=== PATIENT | female | born 1980 | race Caucasian/White ===

== ENCOUNTER 2017-06-15 17:11 | Emergency (ER) | payer BC, OTHER ==
[2017-06-15 17:20] VITALS: BP 105/61
--- NOTE | 2017-06-15 17:22 | UC ---
Back Pain HPI - HPI Summary HPI Summary: Patient presents with complaints of non-traumatic back pain x several days. She states it is in the lower back, and radiates down the side of her left leg to the knee. She denies any incontinence of bowel, bladder or saddle anesthesia. She states she had similar symptoms she had before with sciatica, and was RX flexeril and predispose with good relief. She states she recently resumed her work and is sitting at a desk. She complaints of left hip pain that radiates to the lumbar back, and down the left leg to the knee. She denies any worsening pain with ambulation. She states the pain is worse with certain movement and improves at rest. - History of Current Complaint Chief Complaint: UCBackPain Stated Complaint: BACK PAIN Time Seen by Provider: 06/15/17 17:14 Hx Obtained From: Patient Hx Last Menstrual Period: currently menstruating ?: No Onset/Duration: Gradual Onset, Lasting Days Timing: Constant, Lasting Days Severity Initially: Moderate Severity Currently: Moderate Back Pain: Is Discrete @ Character: Dull, Aching Aggravating Factor(s): Movement, Bending Alleviating Factor(s): Rest Associated Signs And Symptoms: Positive: Negative Related History: Similar Episode Dx As - sciatica - Risk Factors AAA Risk Factors: Negative TAD Risk Factors: Negative Cauda Equina Risk Factors: Negative Epidural Abscess Risk Factors: Negative - Allergies/Home Medications Allergies/Adverse Reactions: Allergies Allergy/AdvReac Type Severity Reaction Status Date / Time Nickel Allergy Rash And Verified 06/15/17 17:20 Itching Home Medications: Home Medications BuPROPion XL* [Bupropion XL*] 300 mg PO DAILY 06/15/17 [History Confirmed ] Muscle Relaxer 1 tab PO ONCE 06/15/17 [History Confirmed 06/15/17] PMH/Surg Hx/FS Hx/Imm Hx Previously Healthy: Yes - Surgical History Surgical History: Yes Surgery Procedure, Year, and Place: [place] teeth extraction - Family History Known Family History: Positive: None - Social History Occupation: Employed Full-time Lives: Alone Alcohol Use: Weekly Alcohol Amount: 2 times per week Substance Use Type: None Smoking Status (MU): Never Smoked Tobacco Review of Systems Constitutional: Negative Skin: Negative Eyes: Negative ENT: Negative Respiratory: Negative Cardiovascular: Negative Gastrointestinal: Negative Genitourinary: Negative Motor: Negative Neurovascular: Negative Musculoskeletal: Arthralgia, Myalgia, Other: - lumbar, left hip pain Neurological: Negative Psychological: Negative All Other Systems Reviewed And Are Negative: Yes Physical Exam Triage Information Reviewed: Yes Appearance: Pain Distress Vital Signs: Initial Vital Signs Temp 98 F 06/15/17 17:14 Pulse 63 06/15/17 17:14 Resp 18 06/15/17 17:14 BP 105/61 06/15/17 17:14 Pulse Ox 100 06/15/17 17:14 Eye Exam: Normal ENT Exam: Normal Neck exam: Normal Neck: Positive: 1 Respiratory Exam: Normal Cardiovascular Exam: Normal Abdominal Exam: Normal Musculoskeletal: Positive: ROM Limited @ - back; inspection, vertebra are in good aligment without stepoff or deformities. no areas of eccymosis, erythma, or edema. palpation;tenderness on palpation of thoracic spine over t7-12. lower extremity strenth testing equal bilaterally 4/5. patellar reflexes 2+ bilaterally. negative straight leg raise. gait heel-toe. Neurological Exam: Normal Psychological Exam: Normal Skin Exam: Normal Back Pain Course/Dx - Course Course Of Treatment: Patient presents with complaints of recurrent lumbar back pain. Xrays of the left hip, pelvis and lumbar spine were obtained and were read by the radiologist as negative. Patient was given tylenol 650 mg in the department. Patient was treated with prednisone, and flexeril. PT referral given. Patient instructed to follow up with PCP in two days. No evidence of cauda equina symdrome noted per cc/hpi or PE. Patient discharged home in stable condition. - Differential Dx/Diagnosis Differential Diagnosis/HQI/PQRI: Strain - sciatica, Sprain Provider Diagnoses: sciatica. sprain. strain Discharge - Discharge Plan Condition: Stable Disposition: HOME Prescriptions: Cyclobenzaprine TAB* [Flexeril 10 MG TAB*] 10 mg PO TID PRN #14 tab MDD 3 PRN Reason: BACK PAIN predniSONE TAB* [Deltasone TAB*] 20 mg PO BID #10 tab Patient Education Materials: Sciatica (ED), Back Pain (ED) Referrals: Aurea Fernández MD [Primary Care Provider] - Additional Instructions: FOLLOW UP WITH YOUR PCP IF YOUR BACK PAIN PERSIST WITHIN TWO DAYS.
[2017-06-15] MEDS ORDERED: predniSONE TAB* 20 MG PO ONE (17:45)
[2017-06-15] MEDS ORDERED: Acetaminophen TAB* 325 MG PO ONE (17:45)
[2017-06-15] MEDS ORDERED: Cyclobenzaprine TAB* 10 MG PO ONE (18:09)
--- NOTE | 2017-06-15 18:15 | RAD ---
HISTORY: Back pain COMPARISONS: None VIEWS: 5 , Frontal, lateral, coned-down lateral sacral, and bilateral oblique views of the lumbar spine. FINDINGS: ALIGNMENT: There is straightening of the normal lumbar lordosis. VERTEBRAL BODIES: The vertebral body heights are normal. The interpedicular distances are normal. There is a small dysraphic defect of the posterior arch of S1. JOINTS: The facet joints are normal. INTERVERTEBRAL DISCS: There is mild loss of intervertebral disc height. SOFT TISSUE: Unremarkable. OTHER: The pelvis is unremarkable. The lung bases are clear. IMPRESSION: STRAIGHTENING OF THE LUMBAR LORDOSIS. MILD DEGENERATIVE DISC DISEASE.
--- NOTE | 2017-06-15 18:15 | RAD ---
HISTORY: Left hip pain COMPARISONS: None VIEWS: 3, Frontal view of the pelvis with frontal and frog-leg views of the left hip FINDINGS: BONE DENSITY: Normal. BONES: There is no displaced fracture. JOINTS: There is no arthropathy. ALIGNMENT: There is no dislocation. SOFT TISSUES: Unremarkable. OTHER FINDINGS: An IUD is noted IMPRESSION: NO ACUTE OSSEOUS INJURY. IF SYMPTOMS PERSIST, RECOMMEND REPEAT IMAGING.
== END 2017-06-15 18:24 | disposition home or self-care (01) ==
LOC: UCEAST 17:11
DX: M54.30 Sciatica, unspecified side (principal); T14.8XXA Other injury of unspecified body region, initial encounter; X58.XXXA Exposure to other specified factors, initial encounter; Y92.9 Unspecified place or not applicable
CPT/HCPCS: 72110; 99213; A9270-GY; G0463; J7512